=== PATIENT | male | born 1965 | race Caucasian/White ===

== ENCOUNTER → 2017-05-12 | Outpatient (CLI) | payer BC | LOC: GMAJ 10:23 | PROVIDERS: ATTEND Family Medicine | DX: M10.9 Gout, unspecified (principal) ==

== ENCOUNTER → 2018-03-17 | Outpatient (CLI) | payer BC | LOC: GMAJ 17:10 | PROVIDERS: ATTEND Family Medicine | DX: Z00.00 Encounter for general adult medical examination without abnormal findings (principal) ==

== ENCOUNTER → 2018-03-24 | Outpatient (CLI) | payer OTHER, BC ==
--- NOTE | 2018-03-24 15:12 | MRI ---
EXAM DESCRIPTION: Lumbar Spine w/o Contrast : Magnetic Resonance Imaging. CLINICAL HISTORY: M54.5. Low back pain. COMPARISON: None. TECHNIQUE: Multiplanar, multiple standard sequences, non contrast MRI, lumbar spine.. Minimal image degradation due to patient body habitus. FINDINGS: L5-S1: Disc desiccation and minimal disc space loss. Tiny posterior bulge and trace retrolisthesis. Posterior elements unremarkable. Moderate narrowing of the right foramen with left foramen patent. Mild to moderate canal narrowing. L4-5: Normal signal in the disc with disc space preserved. Minimal flavum ligament hypertrophy and minimal canal narrowing. No disc bulge. No facet arthrosis. Mild canal and left foraminal narrowing. Right foramen is patent. L3-4: Normal signal in the disc with disc space preserved. Posterior elements unremarkable. Canal and foramina are patent. L2-3: Disc desiccation anteriorly and minimal bulging with endplate ridging. Schmorl's node in the posterior inferior L2 endplate. No posterior disc bulge. Posterior elements unremarkable. Canal and foramina are patent. L1-2: Minimal disc desiccation with anterior bulge and endplate ridging. Small region of Modic type II endplate reactive change. Tiny posterior bulge. Posterior elements unremarkable. Mild canal narrowing. Bilateral foramina are patent. T12-L1: Normal signal in the disc with disc space preserved. Posterior elements unremarkable. Canal and foramina are patent. Conus terminates at this level.. Anatomic alignment and curvature. Paravertebral soft tissues are unremarkable.. Normal marrow signal in the remaining vertebral bodies and the posterior elements. Vertebral bodies are not compressed at any level. IMPRESSION: 1. L5-S1 disc desiccation and disc space loss. Tiny posterior bulge and trace retrolisthesis. Mild to moderate canal narrowing. Moderate narrowing of the right foramen. No definite nerve impingement. 2. Moderate spondylosis L1-2 anteriorly with disc bulge and minimal disc space loss. Mild canal narrowing. No nerve impingement. Less anterior bulging at L2-3 with Schmorl's node inferior L2 endplate posterior. No canal or foraminal stenosis. Electronically signed by: Bandar Shelton MD 03/24/2018 3:11 PM CDT
== END ==
LOC: MRI 12:59
PROVIDERS: ATTEND Family Medicine
DX: M47.896 Other spondylosis, lumbar region (principal); M51.26 Other intervertebral disc displacement, lumbar region

== ENCOUNTER 2019-07-08 05:26 | Day surgery (SDC) | payer BC, OTHER ==
[2019-07-08] MEDS ORDERED: PROPOFOL 200 MG/20 ML VIAL IV ONE (07:00)
[2019-07-08] MEDS ORDERED: ONDANSETRON INJ 4 MG/2 ML VIAL ONE (07:00)
[2019-07-08] MEDS: LACTATED RINGERS 1,000 ML ONE (08:30)
[2019-07-08] MEDS ORDERED: MIDAZOLAM INJ 2 MG/2 ML VIAL ONE (09:18)
[2019-07-08 10:19] VITALS: BP 102/67; TEMP 98.6; O2SAT 93
--- NOTE | 2019-07-08 10:20 | OP ---
DATE OF PROCEDURE: 07/08/19 PREOPERATIVE DIAGNOSIS: 1. Screening colonoscopy. POSTOPERATIVE DIAGNOSIS: 1. Colonic polyps. PROCEDURE: 1. Colonoscopy. SURGEON: Juan Antonio Gonzalez MD ANESTHESIA: General. PROCEDURE: General anesthesia was induced in the lateral position. Digital rectal exam showed what feels like a small thrombosed chronic hemorrhoid externally. Digital exam was otherwise normal with no rectal masses. The colonoscope was introduced. We identified a polyp at about 20 cm. A 2 mm polyp was removed with forceps and retrieved. The distal transverse had a larger polyp on the anterior wall. This was probably about 1 cm. It was retrieved with a hot snare. In the cecum, there was a 1.5 mm polyp that was retrieved with the snare as well. Upon withdrawal, everything looked pretty good. There was a good prep. There was another polyp at about 50 cm. It was taken off, a benign appearing polyp. It, however, was not retrieved. Multiple attempts at irrigation and retrieving the polyp were made and we could not. There was some fragment in specimen. All specimen will be sent. At 5 cm, two additional small benign appearing polyps were encountered. These were both retrieved and sent in the same specimen. Otherwise, exam overall looked very good. The patient was awakened and taken to Recovery to be discharged. #[id number] MTDD
== END 2019-07-08 10:40 | disposition home or self-care (01) ==
LOC: AMB 05:26
PROVIDERS: ATTEND Surgery
DX: Z12.11 Encounter for screening for malignant neoplasm of colon (principal); K63.5 Polyp of colon; D12.3 Benign neoplasm of transverse colon; D12.0 Benign neoplasm of cecum; I10 Essential (primary) hypertension; M10.9 Gout, unspecified; K21.9 Gastro-esophageal reflux disease without esophagitis; Z80.0 Family history of malignant neoplasm of digestive organs; Z79.899 Other long term (current) drug therapy
CPT/HCPCS: 00812; 45385; J2250; J2405; J3490; J7120

== ENCOUNTER → 2020-05-09 | Outpatient (CLI) | payer BC | LOC: GMAJ 10:23 | PROVIDERS: ATTEND Family Medicine | DX: M10.9 Gout, unspecified (principal); Z12.5 Encounter for screening for malignant neoplasm of prostate; I10 Essential (primary) hypertension ==